=== PATIENT | female | born 1960 | race Caucasian/White ===

== ENCOUNTER → 2017-02-23 | Outpatient (CLI) | payer OTHER ==
[~2017-02-23] MED LIST: ALLEGRA ALLERG180 MG PO; ALLEGRA180 MG PO; AMARYL4 MG PO; AMITRIPTYLINE H25 M2 PO; ANTIPYRINE; ASPIRIN EC81 M1 PO; AUGMENTIN 875875 M1 PO; BACLOFEN 10MG T10 M1 PO; BACLOFEN20 MG PO; BACTROBAN22 GM TP; BENTYL 20 MG TA20 M1 PO; BENZOCAINE; BETAMETHASONE D50 G3 TP; C-1000 WITH R1000 MG PO; CLOBETASOL EMOL15 GM TP; COLACE100 MG PO; DOK100 MG PO; DYAZIDE 37.5-21 EACH PO; EFFEXOR XR75 MG PO; ELMIRON 100 MG100 M1 PO; ELMIRON PO; ESTROVEN 155 M155 MG PO; FIRST-BXN MOUT237 ML SW&SWALLOW; FLONASE 0.05%50 MCG NASAL; FOLIC ACID1 MG PO; FUROSEMIDE 40 M40 M1 PO; GABAPENTIN100 MG PO; HYDROCODON-ACE1 EAC2 PO; HYDROCODONE-APA1 TA1 PO; K-DUR 20 MEQ T20 MEQ PO; LAMISIL250 MG PO; LIDODERM 5%1 PATCH TRANSDERM; LIPITOR10 MG PO; LISINOPRIL10 MG PO; METAXALONE800 MG PO; METFORMIN HCL500 MG PO; METHOTREXATE 22.5 MG PO; METOCLOPRAMIDE10 MG PO; MOBIC15 MG PO; MUCINEX600 MG PO; MULTIGEN PO; MULTIVITAMINS PO; NASAL SPRAY30 ML; NEXIUM40 MG PO; NICOTINE TRANSD14 M1 TOP; NITROFURANTOIN100 MG PO; NYSTATIN 1100000 U/M SW&SWALLOW; ONGLYZA5 MG PO; OXYCODONE HCL 55 MG PO; PERCOCET 10-321 EACH PO; PERCOCET 7.5-31 EACH PO; PREDNISOLONE 5 M5 M1; PRELIEF65 MG PO; PROAIR HFA8.5 GM INH; SKELAXIN 800 M800 M1 PO; SPIRIVA INH; SYMBICORT160 MCG/4. INH; VESICARE10 M1 PO; VIBRAMYCIN 100100 MG PO; VITAMIN D 5050000 I1 PO; VITAMIN E400 UNIT PO; VITAMINC500 PO; XANAX 0.5 MG0.5 M1 PO; XOPENEX1.25 MG/3 INH; ZITHROMAX PO; ZOVIRAX400 MG PO
== END ==
LOC: CAT 09:40
DX: R91.1 Solitary pulmonary nodule (principal)

== ENCOUNTER → 2017-03-19 | Outpatient (CLI) | payer OTHER ==
[~2017-03-19] VITALS: Ht 167.6 cm; Wt 108.9 kg
[~2017-03-19] MED LIST changes: +ALDACTONE25 MG PO; +BACTROBAN CREAM30 G1 TOP; +BREO ELLIPTA 11 EACH IH; +BUTALB-APAP-CA1 EACH PO; +CARAFATE 1 GM TA1 G1 PO; +DALIRESP500 MCG PO; +DENAVIR1.5 GM TP; +DIFLUCAN150 M1 PO; +HYDROCORTISONE30 G9 RECTAL; +IMDUR 30 MG TAB30 M1 PO; +IRON325 PO; +LEVALBUTER1.25 MG/0. INH; +LEVEMIR SUBQ; +LEVOTHYROXINE0.05 MG PO; +NORCO 10-325 T1 EACH PO; +PREDNISONE 20 M20 MG PO; +PROCTOZONE-HC30 GM RC; +TEMOVATE30 GM TP; +TOPROL XL25 MG PO; +TRIAMTERENE-HC1 EAC2 PO; +VENTOLIN HFA 1818 GM INH; +VIACTIV SOFT C1 EACH PO; +XALATAN2.5 ML OPHTHALMIC; +[UNRECOGNIZED DRUG - OTHER] PO
--- NOTE | ~2017-03-19 | CATHLAB ---
[facility] [place] [address] INVASIVE PROCEDURE REPORT Name: JOHN JON Room #: REG [facility] [id number] Admission: 03/19/17 Attend Phys: Krish Solitario MD Discharge: Date of : 64 Date of Service: 03/19/17 0943 Report #: [id number] THIS REPORT FOR: //name// CC: Krish Manning DATE OF SERVICE: 03/19/2017 CARDIAC CATHETERIZATION REPORT INDICATION: Angina, abnormal nuclear stress test. Full risks, benefits and alternatives of cardiac catheterization were explained to the patient. All questions were answered. Informed consent was obtained. A Barbeau test was performed on the left radial artery. The left wrist area was prepped and draped in a sterile manner. Lidocaine was given subcutaneously. A 5-Wolof sheath was inserted into the left radial artery via modified Seldinger technique. Nitroglycerin and verapamil were injected through the sheath. 5000 units of heparin was introduced through a peripheral IV line. CORONARY ANATOMY: The left main artery is a large-caliber vessel, with no flow-limiting lesions. The LAD has mild disease in the mid segment, less than 20%. There are 2 small diagonal arteries. The second diagonal artery has moderate disease proximally, 50%. The left circumflex artery gives off one moderate-sized obtuse marginal artery. There is a gfyxckxu-mo-itssfq stenosis in the proximal segment of the obtuse marginal artery, 50% to 70%, recommend medical therapy. The RCA has anterior takeoff. There is mild diffuse disease in the mid segment of the RCA, 20% to 30%. The RPL branch has a long extension out into the inferolateral wall. There is a long yofkhpgi-pj-nnpmay stenosis within the proximal/mid segment of the RPL branch, 60% to 70%. Recommend medical therapy. A left ventriculogram was performed revealing a hyperdynamic LV systolic function, EF of at least 65%. The LVEDP is approximately 37 mmHg. There is no gradient across the outflow tract. IMPRESSION: 1. Patent epicardial vessels with mild disease. 2. Moderate lesions in small branch vessels including the second diagonal artery. [facility] [address] [place] [address] INVASIVE PROCEDURE REPORT Name: JOHN JON Room #: REG [facility]#: [id number] Admission: 03/19/17 Attend Phys: Krish Solitario MD Discharge: Date of : 64 Date of Service: 03/19/17 0943 Report #: [id number] 3. Zrmrikmq-yo-zsctmp stenosis in the obtuse marginal artery. 4. A long, severe disease in a right posterolateral branch, recommend medical therapy. 5. Hyperdynamic left ventricular systolic function. <ELECTRONICALLY SIGNED> By: Krish Solitario MD 03/20/17 0758 0943 1135 MD jer Dye
--- NOTE | ~2017-03-19 | EKG ---
[place] [address] [facility] [place] [address] ELECTROCARDIOGRAM REPORT Name: JOHN JON [facility] #: [facility] [id number] Admission: 03/19/17 Attend Phys: Krish Solitario MD Discharge: Date of : 64 Report #: [id number] THIS REPORT FOR: //name// [facility] Test Date: 2017-03-19 Test Time: 07:06:27 Pat Name: JOHN JON Department: Room: Gender: F Legislators: Tico SILVA : 1960 Requested By: Krish Solitario Order Number: [id number] MD: Anthony Groves Measurements Intervals [place] Rate: 85 P: 52 VA: 177 QRS: 36 QRSD: 77 T: 61 QT: 392 QTc: 467 Interpretive Statements Sinus rhythm Consider left atrial enlargement Borderline T wave abnormalities Compared to ECG 03/16/2014 07:06:07 No significant changes Electronically Signed On 03-19-2017 8:36:43 CDT by Anthony Groves [email or web address] <ELECTRONICALLY SIGNED> By: Anthony Groves MD, [facility] 03/19/17 0836 0706 5 Anthony Groves MD, FACC /EPI
[2017-03-19 07:09] VITALS: BP 183/91
[2017-03-19 07:23] LABS: HEMATOCRIT 38.9 % (37.0-47.0); HEMOGLOBIN 13.3 gm/dL (12.0-15.0); MCHC 34.3 g/dL (28.0-37.0); MCV 105.2 fL (80.0-100.0); RBC 3.7 mil/uL (4.20-5.00); RDW 14.9 % (10.5-14.5); WBC 9.8 thou/uL (4.0-11.0)
[2017-03-19 07:31] LABS: ANION GAP 5 mmol/L (7-16); BUN 9 mg/dL (7-18); CHLORIDE 105 mmol/L (98-107); CO2 29 mmol/L (21-32); CREATININE 0.6 mg/dL (0.6-1.0); GLUCOSE 146 mg/dL (74-106); POTASSIUM 3.7 mmol/L (3.5-5.1); SODIUM 139 mmol/L (136-145)
[2017-03-19 07:37] LABS: CHOLESTEROL 176 mg/dL (<200); HDL CHOLESTEROL 31 mg/dL (>40); LDL CHOLESTEROL 120 mg/dL (<100); TC:HDL 5.7 Ratio (Not establshd); TRIGLYCERIDE 125 mg/dL (<150); VLDL 25 mg/dL (<40)
== END ==
LOC: CATH 06:29
PROVIDERS: Internal Medicine Cardiovascular Disease
DX: I25.119 Atherosclerotic heart disease of native coronary artery with unspecified angina pectoris (principal); D86.89 Sarcoidosis of other sites; R56.9 Unspecified convulsions; K21.9 Gastro-esophageal reflux disease without esophagitis; K58.9 Irritable bowel syndrome, unspecified; M19.90 Unspecified osteoarthritis, unspecified site; Z90.49 Acquired absence of other specified parts of digestive tract; Z90.710 Acquired absence of both cervix and uterus; J45.909 Unspecified asthma, uncomplicated; J43.9 Emphysema, unspecified; E11.9 Type 2 diabetes mellitus without complications; E78.00 Pure hypercholesterolemia, unspecified; E66.9 Obesity, unspecified; N30.10 Interstitial cystitis (chronic) without hematuria; D64.9 Anemia, unspecified; M79.7 Fibromyalgia; I42.9 Cardiomyopathy, unspecified; Z82.49 Family history of ischemic heart disease and other diseases of the circulatory system; G45.9 Transient cerebral ischemic attack, unspecified; I10 Essential (primary) hypertension; F17.210 Nicotine dependence, cigarettes, uncomplicated

== ENCOUNTER 2017-06-01 06:35 | Observation (INO) | payer OTHER ==
[~2017-06-01] VITALS: Ht 167.6 cm; Wt 105.7 kg
--- NOTE | ~2017-06-01 | EKG ---
[address] [address] ELECTROCARDIOGRAM REPORT Name: JOHN JON Room #: 210-P [facility].#: [id number] Admission: 06/01/17 Attend Phys: Krish Solitario MD Discharge: Date of : 64 Report #: [id number] THIS REPORT FOR: //name// [facility] Test Date: 2017-06-01 Test Time: 10:48:35 Pat Name: JOHN JON Department: Room: 210 Gender: F Freelance Court Reporter: FREDY SILVA : 1960 Requested By: Krish Solitario Order Number: [id number] MD: Lucho Hansen Measurements Intervals [place] Rate: 78 P: 62 DC: 198 QRS: 52 QRSD: 87 T: 74 QT: 417 QTc: 476 Interpretive Statements Sinus rhythm Compared to ECG 03/19/2017 07:06:27 T-wave abnormality no longer present Electronically Signed On 06-01-2017 16:49:57 CDT by Lucho Hansen [email or web address] <ELECTRONICALLY SIGNED> By: Lucho Hansen MD 06/01/17 1649 1048 Lucho Hansen MD /EMMETT
--- NOTE | ~2017-06-01 | CATHLAB ---
[facility] [address] [address] INVASIVE PROCEDURE REPORT Name: JOHN JON Room #: 210-P [facility] [place] ..#: [id number] Admission: 06/01/17 Attend Phys: Krish Solitario MD Discharge: Date of : 64 Date of Service: 06/01/17 1407 Report #: [id number] THIS REPORT FOR: //name// APPROVED REPORT Patient Details Patient Status: Out-Patient Room #: The patient is a 57 year-old female Event Personnel Krish Solitario Block Hand, Mary Fitzpatrick, Blaze Galvan RN, Maico Hughes El-Ghussein, Yasmeen RN roller checker Performed Art Access - R femoral artery* Coronary Angiography Only 0499043 CORANG MIRI Place w/wo Plasty Single OM 291204 MIRI Place w/wo Plasty Addl BR CRISTIANO C9601 DESADDL Hemostasis with Manual pressure 81293 Initial Mod Sed Same Phys/QHP Gr5y 041368 31304 Mod Sed Same Phys/QHP Ea 405904 Indication Dyspnea, Unstable angina Risk Factors Obesity, Peripheral Vascular Disease, Chronic Lung DiseaseHypercholesterolemia, Hypertension, Tobacco History () Procedure Narrative The right femoral was infiltrated with 1% Lidocaine subcutaneous anesthesia. A PINNACLE 6FR Sheath #[id number] sheath was inserted into the RFA^. Coronary angiography was performed using coronary diagnostic catheters. The right coronary system was accessed and visualized with a VISTA 6FR JR 4 #[id number] catheter. The left coronary system was accessed and visualized with a VISTA 6FR JL4 #[id number] catheter. The patient tolerated the procedure well and there were no complications associated with the procedure. There was no hematoma. The patient had a recent cardiac catheterization revealing a 70% stenosis in the proximal segment of the first obtuse marginal artery and a long 80% stenosis in the proximal and mid segment of a right posterior lateral branch. The initial recommendation was medical therapy including beta hira, aspirin, statin therapy, long-acting nitrates and Ranexa therapy. On follow-up, she continued to have exertional angina with mild levels of physical activity. She now [address] [address] INVASIVE PROCEDURE REPORT Name: JOHN JON Room #: 210-P [facility]#: [id number] Admission: 06/01/17 Attend Phys: Krish Solitario MD Discharge: Date of : 64 Date of Service: 06/01/17 1407 Report #: [id number] presents for elective staged angioplasty involving the above lesions. Intraoperative Conscious Sedation Sedation start time: 08:13 Case end Time: 09:15 Fentanyl 50 mcg Versed 1 mg Fluoro Time: 19.32 minutes Dose: DAP 07910.50 cGycm2 2572 mGy Contrast Type and Amount: Omnipaque 300 ml Hemodynamics The aortic pressure is 146/71 mmHg with a mean of 100 mmHg. PCI Technique Lesion Anticoagulation was achieved with Angiomax. Percutaneous coronary intervention was performed on the first obtuse marginal branch segment. A VISTA 6FR JL4 #[id number] Guide Catheter was used to engage the LCA ostium. A Luge Wire .014 x 182CM #[id number] Interventional Guidewire was used to cross the lesion. BALLOON DILATION A Balloon catheter TREK RX 2.0 X 12 #[id number] was inserted and inflated up to 10.00atm for 18seconds. Additional Inflation: 10.00atm for 18seconds. STENT DEPLOYMENT A drug-eluting stent RESOLUTE RX 2.5 X 22 #[id number] was inserted and inflated up to 9.00atm for 22seconds. POST STENT DEPLOYMENT BALLOON DILATION A Balloon catheter Euphora NC RX 2.5 x 15 #[id number] was inserted and inflated up to 16.00atm for 21seconds. Additional Inflation: 18.00atm for 13seconds. Additional Inflation: 18.00atm for 17seconds. COMMENTS Successful insertion of a drug-eluting stent into the proximal segment of the first obtuse marginal artery. PCI Technique Lesion 2 Percutaneous Coronary Intervention was performed on the first right posterior lateral segment. A VISTA 6FR JR 4 #[id number] Guide Catheter was used to engage the RCA ostium. A Luge Wire .014 x 182CM #[id number] Interventional Guidewire was used to cross the lesion. [facility] [address] [place] [address] INVASIVE PROCEDURE REPORT Name: JOHN JON Room #: 210-P [facility] M.R.#: [id number] Admission: 06/01/17 Attend Phys: Krish Solitario MD Discharge: Date of : 64 Date of Service: 06/01/17 1407 Report #: [id number] Balloon Dilation A Balloon catheter MINI TREK RX 2.0 X 20 #[id number] was inserted and inflated up to 8.00atm for 17seconds. Additional Inflation: 8.00atm for 18seconds. Stent Deployment A drug-eluting stent RESOLUTE RX 2.25 X 22 #[id number] was inserted and inflated up to 10.00atm for 17seconds. Post Stent Deployment Balloon Dilation A Balloon catheter Euphora NC RX 2.5 x 20 #[id number] was inserted and inflated up to 18.00atm for 27seconds. Additional Inflation: 18.00atm for 13seconds. Additional Inflation: 18.00atm for 13seconds. Comments Successful insertion of 2 overlapping drug-eluting stents into the proximal and mid segments of the right posterior lateral branch 1. STENT DEPLOYMENT A drug-eluting stent RESOLUTE RX 2.25 X 18 #[id number] was inserted and inflated up to 12.00atm for 16seconds. Conclusion 1. Successful insertion of drug-eluting stents to the first OM and first RPL arteries. 2. Recommend dual antiplatelet therapy. 3. Recommend aggressive medical therapy, including cessation of tobacco use. Recommendations Smoking Cessation Aggressive Medical Therapy <ELECTRONICALLY SIGNED> By: Krsih Solitario MD 06/01/17 1407 06 Krish Solitario MD /INF
--- NOTE | ~2017-06-01 | EKG ---
[address] [place] [address] ELECTROCARDIOGRAM REPORT Name: JOHN JON Room #: 210-P [facility]..#: [id number] Admission: 06/01/17 Attend Phys: Krish Solitario MD Discharge: Date of : 64 Report #: [id number] THIS REPORT FOR: //name// [facility] Test Date: 2017-06-01 Test Time: 07:01:54 Pat Name: JOHN JON Department: Room: 210 Gender: F Quality Control Chemist: DORA : 1960 Requested By: Krish Solitario Order Number: [id number] MD: Lucho Hansen Measurements Intervals [place] Rate: 89 P: 49 NH: 173 QRS: 24 QRSD: 85 T: 63 QT: 381 QTc: 464 Interpretive Statements Sinus rhythm Ventricular premature complex Low voltage, precordial leads Compared to ECG 03/19/2017 07:06:27 Ventricular premature complex(es) now present Low QRS voltage now present T-wave abnormality no longer present Electronically Signed On 06-01-2017 16:47:40 CDT by Lcuho Hansen [email or web address] <ELECTRONICALLY SIGNED> By: Lucho Hansen MD 06/01/17 1647 0 0 Lucho Hansen MD /EPI
--- NOTE | ~2017-06-01 | EKG ---
[address] [address] ELECTROCARDIOGRAM REPORT Name: JOHN JON Room #: 210-[facility].#: [id number] Admission: 06/01/17 Attend Phys: Krish Solitario MD Discharge: Date of : 64 Report #: [id number] THIS REPORT FOR: //name// [facility] Test Date: 2017-06-02 Test Time: 06:08:20 Pat Name: JOHN JON Department: Room: 210 Gender: F Bellmaker: DORA : 1960 Requested By: Krish Solitario Order Number: [id number] MD: Anthony Groves Measurements Intervals [place] Rate: 68 P: 2 TN: 165 QRS: 35 QRSD: 94 T: 57 QT: 448 QTc: 477 Interpretive Statements Sinus rhythm No significant abnormality Compared to ECG 06/01/2017 10:48:35 No significant changes Electronically Signed On 06-02-2017 8:34:47 CDT by Anthony Groves [email or web address] <ELECTRONICALLY SIGNED> By: Anthony Groves MD, [facility] 06/02/17 0834 0608 7 Anthony Groves MD, FACC /EPI
--- NOTE | ~2017-06-01 | D ---
[facility] [place] [address] DISCHARGE SUMMARY Name: JOHN JON Room #: 210-P [facility] Chata Botello#: [id number] Admission: 06/01/17 Attend Phys: Krish Solitario MD Discharge: 06/02/17 Date of : 64 Report #: [id number] THIS REPORT FOR: //name// CC: Pablito Manning DATE OF SERVICE: 06/02/2017 FINAL DIAGNOSES: 1. Coronary artery disease, status post percutaneous coronary intervention. 2. Unstable angina. 3. Chronic obstructive pulmonary disease, on chronic oxygen therapy. 4. Tobacco use. 5. Hypertension. 6. Diabetes mellitus. 7. Hypercholesterolemia. 8. Chronic pain syndrome. 9. Gastroesophageal reflux disease. 10. History of urinary tract infection. HOSPITAL COURSE: Please see the original H and P for full details. The patient had a recent cardiac catheterization revealing severe disease and branch vessels, including the first obtuse marginal artery and right posterolateral branch. The initial recommendation was medical therapy including aspirin, statin, beta hira, long-acting nitrates and Ranexa therapy. The patient continued to have symptoms with mild levels of physical exertion. She presents for elective staged angioplasty. Please see the cardiac catheterization report for full details. She underwent placement of drug-eluting stents into the first obtuse marginal artery and right posterolateral branch. She has remained hemodynamically stable overnight. I had a long discussion with her regarding the importance of compliance with dual antiplatelet therapy. FINAL DISPOSITION: Please see the MAR for full details of her medications. This includes aspirin 81 mg daily and Brilinta 90 mg twice a day. She is given a followup appointment in the office in several weeks' time. <ELECTRONICALLY SIGNED> By: Krish Solitario MD 06/03/17 0807 0856 0958 Krish Solitario MD /nt
[2017-06-01] MEDS ORDERED: RANEXA500 MG PO (06:54)
[2017-06-01] MEDS ORDERED: FERRO-SEQUELS1 EACH PO (07:04)
[2017-06-01] MEDS ORDERED: COZAAR 50 MG TA50 M2 PO (07:06)
[2017-06-01] MEDS ORDERED: MUCINEX DM ER1 EAC1 PO (07:12)
[2017-06-01 07:17] LABS: HEMATOCRIT 39.5 % (37.0-47.0); HEMOGLOBIN 13.1 gm/dL (12.0-15.0); MCH 35.4 pg (26.0-34.0); MCHC 33.2 g/dL (28.0-37.0); MCV 106.6 fL (80.0-100.0); RBC 3.71 mil/uL (4.20-5.00); RDW 14.6 % (10.5-14.5)
[2017-06-01] MEDS ORDERED: VITAMIN D 5050000 I1 PO (07:20)
[2017-06-01] MEDS ORDERED: LEVSIN0.125 MG PO (07:25)
[2017-06-01] MEDS ORDERED: ESTROVEN ENERG1 EACH PO (07:26)
[2017-06-01 07:27] LABS: CREATININE 0.8 mg/dL (0.6-1.0)
[2017-06-01] MEDS ORDERED: [UNRECOGNIZED DRUG - OTHER] PO (07:27)
[2017-06-01] MEDS ORDERED: PRELIEF (07:32)
[2017-06-01] MEDS ORDERED: GAS RELIEF80 MG PO (07:33)
[2017-06-01 07:38] VITALS: BP 139/82
[2017-06-01 13:01] LABS: URINE BILIRUBIN NEGATIVE (Negative); URINE BLOOD NEGATIVE (Negative); URINE COLOR YELLOW; URINE GLUCOSE-RANDOM* NEGATIVE (Negative); URINE KETONES NEGATIVE (Negative); URINE LEUKOCYTES-REFLEX NEGATIVE (Negative); URINE PROTEIN (DIPSTICK) NEGATIVE (Negative); URINE SPECIFIC GRAVITY <= 1.005 (1.003-1.035); URINE UROBILINOGEN 0.2 E.U./dl (0.2-1.0)
[2017-06-01] MEDS ORDERED: BREO ELLIPTA 21 EACH IH (14:09)
[2017-06-01] MEDS ORDERED: BUTALB-ACETAMI1 EAC2 PO (14:14)
[2017-06-01 20:10] VITALS: BP 168/96
[2017-06-01 21:45] VITALS: BP 168/96
[2017-06-01 23:00] VITALS: BP 156/72
[2017-06-02 00:10] VITALS: BP 156/72
[2017-06-02 03:20] VITALS: BP 160/80
[2017-06-02 03:30] VITALS: BP 160/80
[2017-06-02 04:07] LABS: CREATININE 0.6 mg/dL (0.6-1.0); POTASSIUM 3.9 mmol/L (3.5-5.1)
[2017-06-02 04:11] LABS: TROPONIN-I 0.85 ng/mL (<0.04-0.07)
[2017-06-02 04:20] LABS: HEMATOCRIT 39.8 % (37.0-47.0); HEMOGLOBIN 13.1 gm/dL (12.0-15.0); MCH 35.2 pg (26.0-34.0); MCHC 32.8 g/dL (28.0-37.0); MCV 107.2 fL (80.0-100.0); RBC 3.72 mil/uL (4.20-5.00); RDW 14.7 % (10.5-14.5); WBC 11.3 thou/uL (4.0-11.0)
[2017-06-02 07:35] VITALS: BP 153/60
[2017-06-02] MEDS ORDERED: BRILINTA90 MG PO (08:49)
[2017-06-02 09:14] VITALS: BP 153/60
[2017-06-02 13:11] VITALS: BP 153/60
== END 2017-06-02 12:05 | disposition home or self-care (01) ==
LOC: CATH 06:35 → 2N 13:21
PROVIDERS: Internal Medicine Cardiovascular Disease; Nurse Practitioner
DX: R07.9 Chest pain, unspecified (principal); I25.110 Atherosclerotic heart disease of native coronary artery with unstable angina pectoris; I10 Essential (primary) hypertension; J44.9 Chronic obstructive pulmonary disease, unspecified; E11.9 Type 2 diabetes mellitus without complications; E78.00 Pure hypercholesterolemia, unspecified; G89.4 Chronic pain syndrome; K21.9 Gastro-esophageal reflux disease without esophagitis; E78.5 Hyperlipidemia, unspecified; G47.33 Obstructive sleep apnea (adult) (pediatric); Z87.440 Personal history of urinary (tract) infections; Z72.0 Tobacco use; Z95.5 Presence of coronary angioplasty implant and graft

== ENCOUNTER → 2017-10-09 | Outpatient (CLI) | payer OTHER ==
[~2017-10-09] MED LIST changes: +AMLODIPINE BESY10 MG PO; +AUGMENTIN XR 11 EACH PO; +BREO ELLIPTA 11 EACH INH; +BREO ELLIPTA 21 EACH IH; +BRILINTA90 MG PO; +BUTALB-ACETAMI1 EAC2 PO; +COREG6.25 MG PO; +COZAAR 50 MG TA50 M2 PO; +DOXYCYCLINE 10100 MG PO; +EPIPEN0.3 MG/0.1 INJECTION; +ESTROVEN ENERG1 EACH PO; +FERRO-SEQUELS1 EACH PO; -GABAPENTIN100 MG PO; +GAS RELIEF80 MG PO; +LEVSIN0.125 MG PO; +LISINOPRIL20 MG PO; +MUCINEX DM ER1 EAC1 PO; +NEURONTIN 300300 M1 PO; +PLAVIX 75 MG TA75 M1 PO; +PREDNISONE 10 M10 MG PO; +PRELIEF; +PROMETHAZINE-C473 ML PO; +RANEXA500 MG PO
== END ==
LOC: CAT 12:51
DX: J92.9 Pleural plaque without asbestos (principal); R91.8 Other nonspecific abnormal finding of lung field; R59.0 Localized enlarged lymph nodes; J44.9 Chronic obstructive pulmonary disease, unspecified; K21.9 Gastro-esophageal reflux disease without esophagitis; G47.33 Obstructive sleep apnea (adult) (pediatric); I10 Essential (primary) hypertension; E04.9 Nontoxic goiter, unspecified; Z98.890 Other specified postprocedural states; Z90.710 Acquired absence of both cervix and uterus; Z87.891 Personal history of nicotine dependence

== ENCOUNTER 2018-04-06 20:33 | Emergency (ER) | payer OTHER ==
[~2018-04-06] VITALS: Ht 167.6 cm; Wt 102.6 kg
[~2018-04-06 20:33] MED LIST changes: -AMLODIPINE BESY10 MG PO; -AUGMENTIN XR 11 EACH PO; -BREO ELLIPTA 11 EACH INH; -COREG6.25 MG PO; -DOXYCYCLINE 10100 MG PO; -EPIPEN0.3 MG/0.1 INJECTION; +GABAPENTIN100 MG PO; -LISINOPRIL20 MG PO; -NEURONTIN 300300 M1 PO; -PLAVIX 75 MG TA75 M1 PO; -PREDNISONE 10 M10 MG PO; -PROMETHAZINE-C473 ML PO
[2018-04-06] MEDS ORDERED: PREDNISONE 20 M20 MG PO (23:58)
[2018-04-06] MEDS ORDERED: EPIPEN0.3 MG/0.1 INJECTION (23:58)
== END 2018-04-07 00:20 | disposition home or self-care (01) ==
LOC: ER 20:33
DX: T88.6XXA Anaphylactic reaction due to adverse effect of correct drug or medicament properly administered, initial encounter (principal); T36.8X5A Adverse effect of other systemic antibiotics, initial encounter; Y92.89 Other specified places as the place of occurrence of the external cause; R06.00 Dyspnea, unspecified; R06.02 Shortness of breath; K21.9 Gastro-esophageal reflux disease without esophagitis; M19.90 Unspecified osteoarthritis, unspecified site; J45.909 Unspecified asthma, uncomplicated; E11.9 Type 2 diabetes mellitus without complications; E78.00 Pure hypercholesterolemia, unspecified; I25.10 Atherosclerotic heart disease of native coronary artery without angina pectoris; I10 Essential (primary) hypertension; G47.30 Sleep apnea, unspecified; Z90.49 Acquired absence of other specified parts of digestive tract

== ENCOUNTER 2018-11-11 12:28 | Emergency (ER) | payer OTHER ==
[~2018-11-11] VITALS: Ht 167.6 cm; Wt 99.8 kg
[~2018-11-11 12:28] MED LIST changes: +AMLODIPINE BESY10 MG PO; +AUGMENTIN XR 11 EACH PO; +BREO ELLIPTA 11 EACH INH; -BREO ELLIPTA 21 EACH IH; +BREO ELLIPTA 21 EACH INH; +COREG6.25 MG PO; +DOXYCYCLINE 10100 MG PO; +EPIPEN0.3 MG/0.1 INJECTION; +ERGOCALCIF50000 UNIT PO; +GABAPENTIN 100100 MG PO; -GABAPENTIN100 MG PO; +LIPITOR 20 MG T20 M1 PO; +LISINOPRIL20 MG PO; +PLAVIX 75 MG TA75 M1 PO; +PREDNISONE 10 M10 MG PO; +PROMETHAZINE-C473 ML PO; +VITAMIN E1000 UNI2 PO; -VITAMIN E400 UNIT PO
[2018-11-11 13:02] LABS: ABSOLUTE NEUTROPHILS 5.1 thou/uL (1.4-8.2); BASOPHILS 0.6 % (0.0-2.0); EOSINOPHILS 1.5 % (0.0-3.0); HEMATOCRIT 39.9 % (37.0-47.0); HEMOGLOBIN 13.9 gm/dL (12.0-15.0); LYMPHOCYTES 22.6 % (24.0-44.0); MCH 37.3 pg (26.0-34.0); MCHC 34.9 g/dL (28.0-37.0); MCV 106.8 fL (80.0-100.0); MONOCYTES 10.7 % (1.0-8.0); PLATELET COUNT 223 thou/uL (150-400); POLYS 64.6 % (36.0-66.0); RBC 3.73 mil/uL (4.20-5.00); RDW 14.3 % (10.5-14.5); WBC 7.9 thou/uL (4.0-11.0)
[2018-11-11 13:16] LABS: ANION GAP 10 mmol/L (7-16); BUN 9 mg/dL (7-18); CALCIUM 8.8 mg/dL (8.5-10.1); CHLORIDE 101 mmol/L (98-107); CO2 26 mmol/L (21-32); CREATININE 0.7 mg/dL (0.6-1.0); GLUCOSE 294 mg/dL (74-106); POTASSIUM 3.8 mmol/L (3.5-5.1); SODIUM 137 mmol/L (136-145)
[2018-11-11 13:20] LABS: ALBUMIN 3.4 g/dL (3.4-5.0); SGOT 21 U/L (15-37); SGPT 33 U/L (30-65); TOTAL BILIRUBIN 0.2 mg/dL (<0.1-1.0); TROPONIN-I <0.06 ng/mL (<0.06)
[2018-11-11 13:40] LABS: ANISOCYTOSIS 1+; MACROCYTES 2+; PLATELET ESTIMATE NORMAL
[2018-11-11] MEDS ORDERED: MOBIC15 MG PO (14:58)
[2018-11-11] MEDS ORDERED: LISINOPRIL20 MG PO (14:58)
[2018-11-11] MEDS ORDERED: IRON325 PO (14:59)
[2018-11-11] MEDS ORDERED: LEVALBUTER1.25 MG/0. PO (14:59)
[2018-11-11] MEDS ORDERED: LEVSIN0.125 MG SUBLING (14:59)
[2018-11-11] MEDS ORDERED: NOVOLOG100 UNIT/1 SUBQ ×2 (15:00)
[2018-11-11] MEDS ORDERED: PROCTOZONE-HC30 GM TOP (15:01)
[2018-11-11] MEDS ORDERED: DEXILANT60 MG PO (15:02)
[2018-11-11] MEDS ORDERED: GABAPENTIN 100100 MG PO (15:02)
[2018-11-11] MEDS ORDERED: ELMIRON 100 MG100 M1 PO (15:02)
--- NOTE | 2018-11-11 15:27 | EKG ---
[place] [address] [address] [place] [address] ELECTROCARDIOGRAM REPORT Name: JOHN JON [facility] [id number] Admission: 11/11/18 Attend Phys: Discharge: Date of : 64 Report #: [id number] THIS REPORT FOR: //name// [facility] ED Test Date: 2018-11-11 Test Time: 12:39:38 Pat Name: JOHN JON Department: Room: Gender: F Human Resource Adviser: WG : 1960 Requested By: Flo Gotti Order Number: [id number] MD: Lucho Hansen Measurements Intervals [place] Rate: 82 P: 57 AR: 178 QRS: 36 QRSD: 87 T: 69 QT: 383 QTc: 448 Interpretive Statements Sinus rhythm Ventricular premature complex Consider left atrial enlargement Borderline T wave abnormalities Compared to ECG 06/02/2018 10:34:14 T-wave abnormality now present ST (T wave) deviation no longer present Electronically Signed On 11-11-2018 15:27:38 TREE LOADER MEAT by Lucho Hansen [email or web address] <ELECTRONICALLY SIGNED> By: Lucho Hansen MD 11/11/18 1527 1239 1239 Lucho Hansen MD /EMMETT
[2018-11-11] MEDS ORDERED: MEDROLDOSEPACK PO (16:25)
[2018-11-11] MEDS ORDERED: LEVALBUTER1.25 MG/0. INH (16:40)
[2018-11-11 17:02] VITALS: BP 139/59
== END 2018-11-11 17:03 | disposition home or self-care (01) ==
LOC: ER 12:28
PROVIDERS: Emergency Medicine
DX: J44.1 Chronic obstructive pulmonary disease with (acute) exacerbation (principal); F17.210 Nicotine dependence, cigarettes, uncomplicated; D86.9 Sarcoidosis, unspecified; K21.9 Gastro-esophageal reflux disease without esophagitis; K58.9 Irritable bowel syndrome, unspecified; G47.33 Obstructive sleep apnea (adult) (pediatric); J45.909 Unspecified asthma, uncomplicated; E11.9 Type 2 diabetes mellitus without complications; E78.00 Pure hypercholesterolemia, unspecified; I95.1 Orthostatic hypotension; M79.7 Fibromyalgia; I25.10 Atherosclerotic heart disease of native coronary artery without angina pectoris; I10 Essential (primary) hypertension; Z88.8 Allergy status to other drugs, medicaments and biological substances; Z90.49 Acquired absence of other specified parts of digestive tract; Z90.710 Acquired absence of both cervix and uterus; Z86.2 Personal history of diseases of the blood and blood-forming organs and certain disorders involving the immune mechanism; Z91.048 Other nonmedicinal substance allergy status; Z88.1 Allergy status to other antibiotic agents; Z91.040 Latex allergy status; Z88.2 Allergy status to sulfonamides; Z79.4 Long term (current) use of insulin

== ENCOUNTER 2019-01-24 06:46 | Outpatient (CLI) | payer OTHER ==
[~2019-01-24] VITALS: Ht 167.6 cm; Wt 103.0 kg
--- NOTE | ~2019-01-24 | D ---
[facility] [place] [address] DISCHARGE SUMMARY Name: JOHN JON Room #: DEP MIKI Botello#: [id number] Admission: 01/24/19 ������������������ Attend Phys: Krish Solitario MD Discharge: 01/25/19 ������������������ Date of : 64 Report #: [id number] THIS REPORT FOR: //name// CC: Bessy Dill DATE OF SERVICE: 01/25/2019 FINAL DIAGNOSES: 1. Unstable angina status post coronary intervention. 2. Prior history of coronary artery disease. 3. Chronic obstructive pulmonary disease, on oxygen. 4. Sarcoidosis. 5. Hypercholesterolemia. 6. Diabetes mellitus. 7. Chronic tobacco use. 8. Hypertension. 9. Gastroesophageal reflux disease. 10. Edema. HOSPITAL COURSE: Please see the original H and P for full details. The patient presented with chest pains and dyspnea. She was found to have an abnormal nuclear stress test with evidence for ischemia in the inferolateral distribution. Please see the cardiac catheterization report for full details. The stent in the first obtuse marginal artery was patent. The LAD had mild disease. The stent in the right posterolateral branch was patent. After the stent, the RPL branch tapers down to a small caliber vessel with severe stenosis at the distal segment and medical therapy is recommended. In the mid/distal RCA, there was a severe occlusion, 80%. Angioplasty was performed with placement of a drug-eluting stent at this location. She remained stable overnight. She will continue with the medications. Please see the MAR for full listing. From a cardiac standpoint, she will continue with aspirin 81 mg daily, Lipitor 20 mg daily, Coreg 12.5 mg b.i.d., lisinopril as directed, Ranexa 1000 mg b.i.d. and new medication, Plavix 75 mg daily. She will be scheduled for followup in a few weeks. ��������������������������������������������� ���������������������������������������� By: ��������������������������������������������� 0942 1220 Krish Solitario MD /nt
[~2019-01-24 06:46] MED LIST changes: +DEXILANT60 MG PO; +LEVALBUTER1.25 MG/0. PO; +LEVSIN0.125 MG SUBLING; +MEDROLDOSEPACK PO; +NOVOLOG100 UNIT/1 SUBQ; +PROCTOZONE-HC30 GM TOP
[2019-01-24 07:16] LABS: HEMATOCRIT 36.6 % (37.0-47.0); HEMOGLOBIN 12.3 gm/dL (12.0-15.0); MCH 36.9 pg (26.0-34.0); MCHC 33.7 g/dL (28.0-37.0); MCV 109.6 fL (80.0-100.0); RBC 3.34 mil/uL (4.20-5.00); WBC 15.5 thou/uL (4.0-11.0)
[2019-01-24] MEDS ORDERED: MAXZIDE-25 MG1 EACH PO (07:21)
[2019-01-24] MEDS ORDERED: DALIRESP500 MCG PO (07:22)
[2019-01-24] MEDS ORDERED: POTASSIUM20 PO (07:22)
[2019-01-24] MEDS ORDERED: CARVEDILOL12.5 MG PO (07:23)
[2019-01-24] MEDS ORDERED: RANEXA500 MG PO (07:24)
[2019-01-24] MEDS ORDERED: LIORESAL 10 MG10 MG PO (07:25)
[2019-01-24 07:27] LABS: CALCIUM 8.9 mg/dL (8.5-10.1); CREATININE 0.7 mg/dL (0.6-1.0)
[2019-01-24 07:28] VITALS: BP 153/62
[2019-01-24 07:32] LABS: CHOLESTEROL 174 mg/dL (<200); HDL CHOLESTEROL 44 mg/dL (>40); LDL CHOLESTEROL 106 mg/dL (<100); TRIGLYCERIDE 124 mg/dL (<150); VLDL 25 mg/dL (<40)
--- NOTE | 2019-01-24 07:32 | EKG ---
[place] [address] [facility] [place] [address] ELECTROCARDIOGRAM REPORT Name: JOHN JON [facility] [id number] ������������������ Admission: 01/24/19 ������������������ Attend Phys: Krish Solitario MD Discharge: ������������������ Date of : 64 Report #: [id number] ����������������������������������������������������������������� [id number] THIS REPORT FOR: //name// [facility] Test Date: 2019-01-24 Test Time: 07:19:01 Pat Name: JOHN JON Department: Room: Gender: F Stereo Plotter Operator: Tico WELLS : 1960 Requested By: Krish Solitario Order Number: [id number] MD: Anthony Groves Measurements Intervals [place] Rate: 75 P: 58 [place]: 183 QRS: 43 QRSD: 87 T: 52 QT: 414 QTc: 463 Interpretive Statements Sinus rhythm Nonspecific ST and T wave abnormality Compared to ECG 11/11/2018 12:39:38 Ventricular premature complex(es) no longer present Electronically Signed On 01-24-2019 7:31:56 CDT by Anthony Groves [email or web address] ��������������������������������������������� <ELECTRONICALLY SIGNED> ���������������������������������������� By: Anthony Groves MD, [facility] ��������������������������������������������� 01/24/1931 8 8 Anthony Groves MD, [facility] /EPI
[2019-01-24 10:45] VITALS: BP 146/74
--- NOTE | 2019-01-24 10:45 | NUR ---
RECEIVED FROM POLE SANDER OPERATOR SLEEPY BUT AROUSABLE, VSS NSR R GROIN CATH SITE/MYNX, NO BLEEDING HEMATOMA, NO BRUIT HEARD.INSTUCTED BR X 4 HOURS, LUNGS CLEAR O2 AT 5L O2 SAT 94%. SEE DATA FLOW SHEET FOR FREQUENT VA AND GROIN CHECKS. WILL CONTINUE TO MONITER AND CARE FOR PT PER PLNA OF CARE
[2019-01-24 11:30] VITALS: BP 112/70
--- NOTE | 2019-01-24 12:47 | CATHLAB ---
[facility] [address] [place] [address] INVASIVE PROCEDURE REPORT Name: JOHN JON Room #: 207-P [facility]#: [id number] ������������� Admission: 01/24/19 ������������� Attend Phys: Krish Solitario MD Discharge: ��� ������������� ��� Date of : 64 Date of Service: 01/24/19 1247 �� Report #: [id number] �������� ��������������������������������������������[id number] THIS REPORT FOR: //name// APPROVED REPORT Study performed: 01/24/2019 07:32:25 Patient Details Patient Status: Out-Patient Room #: The patient is a 59 year-old female Event Personnel Krish Solitario Surgical Technology Instructor, Allyson Mckeon RTR, DRONE PILOT Monitor, Reyna Munoz RN RN, Ekaterina Luis RN RN, Mary Fitzpatrick Scrviv Procedures Performed Art Access - R femoral artery* Left Heart Cath w/or w/o Coronaries [id number] [facility] MIRI Place w/wo Plasty Single RCA 391899 Indication Dyspnea, Unstable angina , Positive stress test Risk Factors Hypercholesterolemia, Coronary Artery DiseaseHypertension, Diabetes Tobacco History () Previous Procedures/Diagnoses Previous PCI Procedure Narrative The patient was brought electively to the Cardiac Catheterization Laboratory and was prepped and draped in a sterile manner. The Right Groin^ was infiltrated with 1% Lidocaine subcutaneous anesthesia. A PINNACLE 4FR Sheath #[id number] sheath was inserted into the RFA^. Coronary angiography was performed using coronary diagnostic catheters. The right coronary system was accessed and visualized with a 4FR AR MOD #[id number] catheter. The left coronary system was accessed and visualized with a JL 4 catheter. The left ventricle was accessed and visualized with a Pigtail catheter. Left ventricular/Aortic Valve gradient assessed via catheter pullback. Left ventriculogram was performed in VENEGAS projection. Pre-demployment femoral angiogram was performed . Closure device was deployed with a 6 Fr Mynx. The patient tolerated the procedure well and there were no complications [facility] [address] [place] [address] INVASIVE PROCEDURE REPORT Name: JOHN JON Room #: 207-P [facility]#: [id number] ������������� Admission: 01/24/19 ������������� Attend Phys: Krish Solitario MD Discharge: ��� ������������� ��� Date of : 64 Date of Service: 01/24/19 1247 �� Report #: [id number] �������� ��������������������������������������������[id number] associated with the procedure. There was no hematoma. Fluoro Time: 9.03 minutes Dose: DAP 80949.10 cGycm2 1541 mGy Contrast Type and Amount: Omnipaque 175 ml Coronary Angiography The patient's coronary anatomy is right dominant. Diagnostic Cath Left Main This is a large caliber vessel, patent with no flow-limiting lesions. LAD This is a moderate size caliber vessel, traversing the anterior wall and wrapping around the apex. There is only mild disease in the mid segment, 20%. Diagonal 1 This is a patent vessel, with no flow-limiting lesions. Circumflex There is mild disease in the proximal segment, 30%. OM1 There is a stent in the proximal segment, patent with minimal restenosis. At the terminal end of this vessel, there is severe diffuse disease. Recommend medical therapy. Right Coronary This is a dominant vessel with mild diffuse disease in the proximal segment, 20%. There is a severe occlusion in the mid/distal segment, 80%. R PDA This is a small-caliber vessel, with moderate diffuse disease in the distal segment. RPLV This is a moderate size caliber vessel with overlapping stents in the proximal/mid segments, patent with minimal restenosis. The distal segment tapers down to a small size caliber, has a severe occlusion. Recommend medical therapy. Left Ventriculography The left ventricle is normal in size with normal contractility. The left ventricular ejection fraction is estimated to be >55%. There is mild hypokinesis of mid inferior wall. Hemodynamics The aortic pressure is 130/85 mmHg with a mean of 103 mmHg. The left ventricular pressure is 149/27 mmHg with a mean of mmHg. The left ventricular end diastolic pressure is 38 mmHg. PCI Technique Lesion Anticoagulation was achieved with Heparin. Percutaneous coronary intervention was performed on the mid/distal coronary artery. The lesion stenosis prior to intervention was 80% with MARCELINO 3 flow. A [facility] [address] [place] [address] INVASIVE PROCEDURE REPORT Name: DONTRELLJOHN FORDE Room #: 207-P [facility] M.R.#: [id number] ������������� Admission: 01/24/19 ������������� Attend Phys: Krish Solitario MD Discharge: ��� ������������� ��� Date of : 64 Date of Service: 01/24/19 1247 �� Report #: [id number] �������� ��������������������������������������������[id number] VISTA 6FR AR 1 #253350 Guide Catheter was used to engage the ostium. A Luge Wire .014 x 182CM #[id number] Interventional Guidewire was used to cross the lesion. BALLOON DILATION A Balloon catheter Euphora RX 2.5 x 12 #[id number] was inserted and inflated up to 8.00atm for 15seconds. Additional Inflation: 8.00atm for 24seconds. STENT DEPLOYMENT A drug-eluting stent RESOLUTE ASHLEY RX 2.75 X15 #[id number] was inserted and inflated up to 12.00atm for 21seconds. POST STENT DEPLOYMENT BALLOON DILATION A Balloon catheter Euphora NC RX 2.75 x 12 #[id number] was inserted and inflated up to 18.00atm for 20seconds. Additional Inflation: 18.00atm for 21seconds. Final angiography reveals 0 % stenosis with MARCELINO 3 flow. Conclusion 1. Successful insertion of a drug-eluting stent into the mid/distal RCA. 2. Patent stent in OM1 with minimal restenosis. 3. Patent stent in the proximal/mid segment of RPL vessel with minimal restenosis. 4. Severe diffuse disease in the distal segments of small caliber vessels including OM 1 and RPL. Recommend medical therapy. 5. Normal LV systolic function, with mild hypokinesis of the mid inferior wall. 6. Recommend dual antiplatelet therapy and aggressive risk factor management. ��������������������������������������������� <ELECTRONICALLY SIGNED> ���������������������������������������� By: Krish Solitario MD ��������������������������������������������� 01/24/19 1247 1247 124 Krish Solitario MD /INF
--- NOTE | 2019-01-24 14:11 | EKG ---
[address] [address] ELECTROCARDIOGRAM REPORT Name: JOHN JON Room #: 207-P [facility]#: [id number] ������������������ Admission: 01/24/19 ������������������ Attend Phys: Krish Solitario MD Discharge: ������������������ Date of : 64 Report #: [id number] ����������������������������������������������������������������� [id number] THIS REPORT FOR: //name// [facility] Test Date: 2019-01-24 Test Time: 09:54:32 Pat Name: JOHN JON Department: Room: Gender: F Laundry Bag Punch Operator: Tico SILVA : 1960 Requested By: Krish Solitario Order Number: [id number] MD: Lucho Hansen Measurements Intervals [place] Rate: 83 P: 69 ND: 185 QRS: 59 QRSD: 86 T: 42 QT: 395 QTc: 465 Interpretive Statements Sinus rhythm Borderline T wave abnormalities Compared to ECG 01/24/2019 07:19:01 T-wave abnormality now present ST (T wave) deviation no longer present Electronically Signed On 01-24-2019 14:10:59 CDT by Lucho Hansen [email or web address] ��������������������������������������������� <ELECTRONICALLY SIGNED> ���������������������������������������� By: Lucho Hansen MD ��������������������������������������������� 01/24/19 1412 0954 0954 Lucho Hansen MD /EMMETT
[2019-01-24 16:00] VITALS: BP 152/70
--- NOTE | 2019-01-24 16:54 | NUR ---
VSS NSR R GROIN CATH SITE WITHOUT HEMATOMA BRUIT. UP TO BRP WITHOUT C/O CHEST PAIN. VOIDING /DRINKING QS. SEE DATA FLOW SHEET FOR GREQUENT VS AND GROIN CHECKS. LUNGS DIMINISHED, O2 SAT 3L IS 96%. WILL CONTINUE TO MONITER AND CARE FOR PT PER PLAN OF CARE
[2019-01-24 19:37] VITALS: BP 153/78
[2019-01-25 03:48] LABS: ALBUMIN 3.5 g/dL (3.4-5.0); ANION GAP 5 mmol/L (7-16); BUN 7 mg/dL (7-18); CALCIUM 8.6 mg/dL (8.5-10.1); CHLORIDE 104 mmol/L (98-107); CO2 32 mmol/L (21-32); CREATININE 0.6 mg/dL (0.6-1.0); GLUCOSE 136 mg/dL (74-106); POTASSIUM 3.9 mmol/L (3.5-5.1); SGOT 14 U/L (15-37); SGPT 32 U/L (30-65); SODIUM 141 mmol/L (136-145); TOTAL BILIRUBIN 0.4 mg/dL (<0.1-1.0); TROPONIN-I <0.06 ng/mL (<0.06)
[2019-01-25 04:11] LABS: HEMATOCRIT 37.5 % (37.0-47.0); HEMOGLOBIN 12.2 gm/dL (12.0-15.0); MCHC 32.5 g/dL (28.0-37.0); MCV 110.6 fL (80.0-100.0); RBC 3.39 mil/uL (4.20-5.00); WBC 9.6 thou/uL (4.0-11.0)
--- NOTE | 2019-01-25 04:34 | NUR ---
PATIENT WAS OUT PATIENT CARDIAC CATH. ACCESSED THROUGH RIGHT GROIN. DRESSING C/D/I. C/O SORENESS AT SITE BUT NO SIGN OF HEMATOMA. SHE ALSO REPORTED PAIN OF 9 IN HER BACK . SHE STATES TO TAKE 2 NORCOS (10-325) AT HOME. TALKED TO DR PICHARDO AND OBTAIN AN ORDER FOR 2 ( 10-325). PATIENT REPORTS FEELING A SILLY COMFORTABLE. STILL SOA WITH ACTIVITIES, BUT STEADLY AMBULATES TO BATHROOM,. NORCO GIVEN X2. SEE EMAR FOR TIUMES, WILL CONTINUE TO FOLLOE POC
[2019-01-25 05:55] VITALS: BP 155/74
[2019-01-25 08:00] VITALS: BP 151/81
--- NOTE | 2019-01-25 08:14 | EKG ---
[address] [address] ELECTROCARDIOGRAM REPORT Name: JOHN JON Room #: 207-[facility].#: [id number] ������������������ Admission: 01/24/19 ������������������ Attend Phys: Krish Solitario MD Discharge: ������������������ Date of : 64 Report #: [id number] ����������������������������������������������������������������� [id number] THIS REPORT FOR: //name// [facility] Test Date: 2019-01-25 Test Time: 07:06:45 Pat Name: JOHN JON Department: Room: 207 Gender: F Dump Grader: DORA : 1960 Requested By: Krish Solitario Order Number: [id number] MD: Lucho Hansen Measurements Intervals [place] Rate: 73 P: 58 AL: 184 QRS: 44 QRSD: 102 T: 45 QT: 420 QTc: 463 Interpretive Statements Sinus rhythm Borderline T wave abnormalities Compared to ECG 01/24/2019 09:54:32 No significant changes Electronically Signed On 01-25-2019 8:14:40 CDT by Lucho Hansen [email or web address] ��������������������������������������������� <ELECTRONICALLY SIGNED> ���������������������������������������� By: Lucho Hansen MD ��������������������������������������������� 01/25/19 0814 D: 04/705 5 Lucho Hansen MD /EMMETT
[2019-01-25 09:25] VITALS: BP 152/81
[2019-01-25] MEDS ORDERED: CLOPIDOGREL75 MG PO (09:35)
[2019-01-25 10:02] VITALS: BP 152/81
--- NOTE | 2019-01-25 10:47 | NUR ---
PATIENT GIVEN DISCHARGE INSTRUCTIONS. EDUCATED PATIENT ON NEW MEDICATION AND TO MAKE FOLLOW UP APPOINTMENT. PATIENT STATED UNDERSTANDING AND ESCORTED OUT BY WHEELCHAIR ACCOMPANIED BY .
== END 2019-01-25 10:59 | disposition home or self-care (01) ==
LOC: 2N 06:46 → CATH 06:46 → 2N 10:44 → ENTRNSPT 01-25 10:24 → EDTRNSPTSTS 01-25 10:44 → CATH 01-25 10:59
PROVIDERS: Internal Medicine Cardiovascular Disease
DX: I25.110 Atherosclerotic heart disease of native coronary artery with unstable angina pectoris (principal); E78.00 Pure hypercholesterolemia, unspecified; I10 Essential (primary) hypertension; E11.9 Type 2 diabetes mellitus without complications; Z87.891 Personal history of nicotine dependence; Z79.899 Other long term (current) drug therapy; Z98.890 Other specified postprocedural states; R56.9 Unspecified convulsions; K21.9 Gastro-esophageal reflux disease without esophagitis; K58.9 Irritable bowel syndrome, unspecified; M19.90 Unspecified osteoarthritis, unspecified site; G47.30 Sleep apnea, unspecified; Z90.710 Acquired absence of both cervix and uterus; E66.9 Obesity, unspecified; J43.9 Emphysema, unspecified
CPT/HCPCS: 10081

== ENCOUNTER → 2019-08-05 | Outpatient (CLI) | payer OTHER ==
[~2019-08-05] MED LIST changes: +CARVEDILOL12.5 MG PO; +CLOPIDOGREL75 MG PO; +LIORESAL 10 MG10 MG PO; +MAXZIDE-25 MG1 EACH PO; +POTASSIUM20 PO
== END ==
LOC: RAD 10:45
DX: J98.4 Other disorders of lung (principal)

== ENCOUNTER → 2019-12-09 | Outpatient (CLI) | payer OTHER | LOC: CAT 11-09 13:21 | DX: R91.1 Solitary pulmonary nodule (principal); D86.9 Sarcoidosis, unspecified; I70.0 Atherosclerosis of aorta; I25.10 Atherosclerotic heart disease of native coronary artery without angina pectoris; M25.78 Osteophyte, vertebrae; Z88.2 Allergy status to sulfonamides; Z88.8 Allergy status to other drugs, medicaments and biological substances ==

== ENCOUNTER → 2019-12-21 | Outpatient (CLI) | payer OTHER | LOC: SJCVCIMAG 09:53 | DX: I08.1 Rheumatic disorders of both mitral and tricuspid valves (principal); I11.9 Hypertensive heart disease without heart failure; I25.708 Atherosclerosis of coronary artery bypass graft(s), unspecified, with other forms of angina pectoris; J44.9 Chronic obstructive pulmonary disease, unspecified; E78.00 Pure hypercholesterolemia, unspecified; K21.9 Gastro-esophageal reflux disease without esophagitis; E78.5 Hyperlipidemia, unspecified; M19.90 Unspecified osteoarthritis, unspecified site; F17.210 Nicotine dependence, cigarettes, uncomplicated; Z79.82 Long term (current) use of aspirin; Z79.899 Other long term (current) drug therapy; Z95.1 Presence of aortocoronary bypass graft ==

== ENCOUNTER → 2019-12-23 | Outpatient (CLI) | payer OTHER ==
[~2019-12-23] VITALS: Ht 167.6 cm; Wt 98.0 kg
[2019-12-23 07:22] VITALS: BP 111/69
[2019-12-23 07:53] LABS: HEMATOCRIT 40.2 % (37.0-47.0); HEMOGLOBIN 13.2 gm/dL (12.0-15.0); MCH 35.1 pg (26.0-34.0); MCV 106.6 fL (80.0-100.0); RBC 3.77 mil/uL (4.20-5.00); RDW 14.5 % (10.5-14.5); WBC 8.4 thou/uL (4.0-11.0)
[2019-12-23 08:04] LABS: CALCIUM 9.1 mg/dL (8.5-10.1); CREATININE 0.7 mg/dL (0.6-1.0); POTASSIUM 3.6 mmol/L (3.5-5.1)
--- NOTE | 2019-12-23 09:30 | EKG ---
[facility] [place] [address] ELECTROCARDIOGRAM REPORT Name: JOHN JON Room #: REG [facility].#: [id number] Admission: 12/23/19 Attend Phys: Krish Solitario MD Discharge: Date of : 64 Report #: [id number] THIS REPORT FOR: cc: Red Manning MD, Kirk D. MD Lundgren,Anthony Woodard MD [facility] ~ THIS REPORT FOR: //name// [facility] Test Date: 2019-12-23 Test Time: 07:31:15 Pat Name: JOHN JON Department: Room: Gender: Shotweld Operator: Tico SILVA : 1960 Requested By: Krish Solitario Order Number: [id number] MD: Anthony Groves Measurements Intervals [place] Rate: 84 P: 61 ND: 177 QRS: 38 QRSD: 82 T: 65 QT: 397 QTc: 470 Interpretive Statements Sinus rhythm Nonspecific ST segment abnormality Compared to ECG 01/25/2019 07:06:45 No significant change was found Electronically Signed On 12-23-2019 9:29:28 CDT by Anthony Groves [email or web address] <ELECTRONICALLY SIGNED> By: Anthony Groves MD, FACC 12/23/19 0929 0 Anthony Groves MD, [facility] /EPI
--- NOTE | 2019-12-23 12:25 | CATHLAB ---
[facility] [place] [address] INVASIVE PROCEDURE REPORT Name: JOHN JON [id number] Admission: 12/23/19 Attend Phys: Krish Solitario MD Discharge: Date of : 64 Report #: [id number] THIS REPORT FOR: cc: Red Manning MD, Kirk D. MD Park, Jin S. MD ~ APPROVED REPORT Study performed: 12/23/2019 07:37:27 Patient Details Patient Status: Out-Patient Room #: The patient is a 59 year-old female Event Personnel Krish Solitario Chain Mender, Gabriella De RN RN, Andrew Trinidad RTR Monitor, Maico Hughes Monitor, Lawson Arias RTR Scrub Procedures Performed Left Heart Cath w/or w/o Coronaries [id number] [facility] Art Access - R femoral artery* 34500 Initial Mod Sed Same Phys/QHP Gr5y 239781 62661 Mod Sed Same Phys/QHP Ea [id number] Hemostasis with Manual pressure Indication Dyspnea, Unstable angina , Chest pain Risk Factors Obesity, Chronic Lung DiseaseHypercholesterolemiaPhysical Activity, Coronary Artery DiseaseHypertension, Diabetes Tobacco History () Previous Procedures/Diagnoses Previous PCI Procedure Narrative The patient was brought electively to the Cardiac Catheterization Laboratory and was prepped and draped in a sterile manner. The Right Groin^ was infiltrated with 1% Lidocaine subcutaneous anesthesia. A PINNACLE 4FR Sheath #[id number] sheath was inserted into the RFA^. Coronary angiography was performed using coronary diagnostic catheters. The right coronary system was accessed and visualized with a JR4 catheter. The left coronary system was accessed and visualized [place] [address] [place] [address] INVASIVE PROCEDURE REPORT Name: JOHN JON Room #: REG [facility]#: [id number] Admission: 12/23/19 Attend Phys: Krish Solitario MD Discharge: Date of : 64 Report #: [id number] with a JL4 catheter. The left ventricle was accessed and visualized with a PIGTAIL catheter. Hemostasis was obtained with manual pressure following sheath removal without any complications. The patient tolerated the procedure well and there were no complications associated with the procedure. There was no hematoma. Intraoperative Conscious Sedation Sedation start time: 08:31 Case end Time: 09:07 Fentanyl 50 mcg Versed 1 mg Fluoro Time: 3.80 minutes Dose: DAP 4682.00 cGycm2 1120 mGy Contrast Type and Amount: Omnipaque 95 ml Coronary Angiography The patient's coronary anatomy is right dominant. Diagnostic Cath Left Main The left main artery is a large-caliber vessel, patent with no flow-limiting lesions. LAD The LAD is a moderate size caliber vessel, traversing the anterior wall and wrapping around the apex. There is mild plaquing in the mid segment. Diagonal 1 This is a small to moderate size caliber vessel, patent with no flow-limiting lesions. Diagonal 2 This is a small to moderate size caliber vessel, patent with no flow-limiting lesions. Circumflex There is mild disease in the proximal segment, 30%. OM1 There is a patent stent in the proximal segment, with minimal restenosis. The distal segment tapers down to a small size caliber vessel, with severe diffuse disease. Unchanged compared to prior procedures. Continue with medical therapy. Right Coronary The RCA is a dominant vessel, with mild disease in the mid segment, 30%. There is a patent stent in the distal segment with minimal restenosis. R PDA This is a small-caliber vessel, with moderate diffuse disease in the distal segment. RPLV There are multiple overlapping stents in the proximal and mid segment, patent with minimal restenosis. There is severe diffuse disease in the distal segment, unchanged compared to prior procedures. Left Ventriculography The left ventricle is normal in size with normal contractility. [facility] [address] [place] [address] INVASIVE PROCEDURE REPORT Name: JOHN JON Room #: REG [facility].#: [id number] Admission: 12/23/19 Attend Phys: Krish Solitario MD Discharge: Date of : 64 Report #: [id number] left ventricular ejection fraction is estimated to be 60-65%. Hemodynamics The aortic pressure is 158/81 mmHg with a mean of 102 mmHg. The left ventricular pressure is 163/11 mmHg with a mean of mmHg. The left ventricular end diastolic pressure is 24 mmHg. Conclusion 1. There are patent stents in OM1, distal RCA and RPL branch. 2. There is severe diffuse disease in the terminal segment of OM1 and RPL. This is unchanged compared to prior procedures. 3. There is normal LV systolic function. 4. Recommend aggressive risk factor management. <ELECTRONICALLY SIGNED> By: Krish Solitario MD 12/23/19 1224 1224 1224 Krish Solitario MD /INF
== END | disposition home or self-care (01) ==
LOC: CATH 06:31
PROVIDERS: Internal Medicine Cardiovascular Disease
DX: R06.00 Dyspnea, unspecified (principal); I25.110 Atherosclerotic heart disease of native coronary artery with unstable angina pectoris; R07.9 Chest pain, unspecified; I10 Essential (primary) hypertension; E11.9 Type 2 diabetes mellitus without complications; J44.9 Chronic obstructive pulmonary disease, unspecified; M79.7 Fibromyalgia; G47.33 Obstructive sleep apnea (adult) (pediatric); E78.00 Pure hypercholesterolemia, unspecified; E66.09 Other obesity due to excess calories; K21.9 Gastro-esophageal reflux disease without esophagitis; D64.9 Anemia, unspecified; F17.210 Nicotine dependence, cigarettes, uncomplicated; Z98.890 Other specified postprocedural states; Z90.710 Acquired absence of both cervix and uterus; Z90.49 Acquired absence of other specified parts of digestive tract; Z79.4 Long term (current) use of insulin; Z86.73 Personal history of transient ischemic attack (TIA), and cerebral infarction without residual deficits; Z79.899 Other long term (current) drug therapy; Z88.8 Allergy status to other drugs, medicaments and biological substances; Z88.2 Allergy status to sulfonamides; Z91.040 Latex allergy status; Z79.82 Long term (current) use of aspirin

== ENCOUNTER → 2020-06-15 | Outpatient (CLI) | payer OTHER | LOC: CAT 10:18 | PROVIDERS: ATTEND Pediatrics | DX: I25.10 Atherosclerotic heart disease of native coronary artery without angina pectoris (principal); R91.1 Solitary pulmonary nodule; R06.02 Shortness of breath ==

== ENCOUNTER → 2020-11-14 | Outpatient (CLI) | payer OTHER | LOC: SJCVC 13:48 | PROVIDERS: ATTEND Internal Medicine Cardiovascular Disease | DX: R94.31 Abnormal electrocardiogram [ECG] [EKG] (principal); I25.118 Atherosclerotic heart disease of native coronary artery with other forms of angina pectoris; J44.9 Chronic obstructive pulmonary disease, unspecified; I10 Essential (primary) hypertension; E78.00 Pure hypercholesterolemia, unspecified; E11.9 Type 2 diabetes mellitus without complications; G47.33 Obstructive sleep apnea (adult) (pediatric); M19.90 Unspecified osteoarthritis, unspecified site; G89.29 Other chronic pain; K21.9 Gastro-esophageal reflux disease without esophagitis; E78.5 Hyperlipidemia, unspecified; F17.210 Nicotine dependence, cigarettes, uncomplicated; Z98.61 Coronary angioplasty status; Z95.828 Presence of other vascular implants and grafts; Z90.710 Acquired absence of both cervix and uterus; Z98.890 Other specified postprocedural states; Z96.611 Presence of right artificial shoulder joint; Z88.8 Allergy status to other drugs, medicaments and biological substances; Z79.4 Long term (current) use of insulin; Z79.82 Long term (current) use of aspirin; Z79.899 Other long term (current) drug therapy; Z79.891 Long term (current) use of opiate analgesic; Z82.49 Family history of ischemic heart disease and other diseases of the circulatory system ==

== ENCOUNTER → 2020-12-13 | Outpatient (CLI) | payer OTHER | LOC: CAT 13:32 | PROVIDERS: ATTEND Pediatrics | DX: R91.8 Other nonspecific abnormal finding of lung field (principal); I25.10 Atherosclerotic heart disease of native coronary artery without angina pectoris ==

== ENCOUNTER → 2021-07-01 | Outpatient (CLI) | payer OTHER | LOC: SJCVCIMAG 08:54 | PROVIDERS: ATTEND Internal Medicine Cardiovascular Disease | DX: I25.10 Atherosclerotic heart disease of native coronary artery without angina pectoris (principal); J44.9 Chronic obstructive pulmonary disease, unspecified; I10 Essential (primary) hypertension; E78.00 Pure hypercholesterolemia, unspecified; E78.5 Hyperlipidemia, unspecified; E11.9 Type 2 diabetes mellitus without complications; F17.200 Nicotine dependence, unspecified, uncomplicated; Z79.899 Other long term (current) drug therapy; Z79.82 Long term (current) use of aspirin; Z79.4 Long term (current) use of insulin; Z98.61 Coronary angioplasty status; Z91.040 Latex allergy status; Z88.1 Allergy status to other antibiotic agents; Z88.2 Allergy status to sulfonamides; Z88.8 Allergy status to other drugs, medicaments and biological substances ==

== ENCOUNTER → 2021-07-09 | Outpatient (CLI) | payer OTHER | LOC: CAT | PROVIDERS: ATTEND Pediatrics | DX: R91.1 Solitary pulmonary nodule (principal); J98.4 Other disorders of lung; J44.9 Chronic obstructive pulmonary disease, unspecified; I25.10 Atherosclerotic heart disease of native coronary artery without angina pectoris ==

== ENCOUNTER → 2021-10-24 | Outpatient (CLI) | payer OTHER ==
--- NOTE | 2021-11-09 11:50 | PFR/MVV ---
[facility] [place] [address] PULMONARY FUNCTION MVV/REPORT Name: JOHN JON Room #: REG [facility] Arabella.#: [id number] Admission: 10/24/21 Attend Phys: Barney Garcia MD Discharge: Date of : 64 Report #: [id number] THIS REPORT FOR: //name// >> SPIROMETRY: (BTPS) Height: 66 in cm Weight: 214 lbs kg Exam Date: 10/24/21 PRE-RX POST-RX PRED BEST %PRED BEST %PRED %CHG FVC LITERS . 3.32 . 2.36 . 71 . 2.37 . 71 . 0 FEV1 LITERS . 2.47 . 1.71 . 69 . 1.68 . 68 . -2 FEV1/FVC % . 74 . 73 . 99 . 71 . 97 . -2 TEC12-69% L/Sec . 2.74 . 1.29 . 47 . 1.11 . 41 . -14 PEF L/SEC . 6.00 . 4.04 . 67 . 3.20 . 53 . -21 FEF50/FIF50 UNITLESS . 3.54 . 2.40 . 68 . 2.00 . 57 . -17 MVV L/Min . 93 . 68 . 73 f 1/Min . . . >> LUNG VOLUMES: (BTPS) PRE-RX POST-RX PRED AVG %PRED AVG %PRED %CHG VC Liters . 3.32 . 2.36 . 71 . . . TLC Liters . 5.30 . 3.75 . 71 . . . RV Liters . 2.00 . 1.39 . 70 . . . RV/TLC % . 37 . 37 . 99 . . . FRC PL Liters . 2.52 . 1.61 . 64 . . . FRC N2 Liters . 2.52 . . . . . ERV Liters . 1.12 . 0.12 . 11 . . . IC Liters . 2.23 . 2.14 . 96 . . . >> DIFFUSION: DLCO ml/Min/mmHg . 25.6 . 12.0. . 47 . . . DL Kanchan ml/Min/mmHg . 25.6 . 12.0 . 47 . . . DLCO/VA ml/Min/mmHg . 3.80 . 3.95 . 104 . . . VA Liters . . 3.03 . . . . COMMENTS: COMMENTS: >> RESISTANCE: [facility] [address] [place] [address] PULMONARY FUNCTION MVV/REPORT Name: JOHN JON Room #: REG [facility] Ayan#: [id number] Admission: 10/24/21 Attend Phys: Barney Garcia MD Discharge: Date of : 64 Report #: [id number] PRE-RX PRED AVG %PRED Raw Total cmH20/L/Sec . . 5.68 . Raw Insp cmH20/L/Sec . . 4.83 . Raw Exp cmH20/L/Sec . . 7.15 . Raw cmH20/L/Sec . 1.53 . 4.14 . 270 Gaw L/Sec/cmH20 . 0.605 . 0.242 . 40 sRaw cmH20 Sec . 3.86 . 12.03 . 311 sGaw l/cmH20 Sec . 0.259 . 0.083 . 32 Vtq Liters . . 2.91 . # = OUTSIDE 95% CONFIDENCE INTERVAL CALIBRATION: PRED: 3.00 ACTUAL: EXP 3.01 INSP 3.02 [facility]-10-06 [facility]05 N-1804-4 >> INTERPRETATION/IMPRESSION: DATE OF SERVICE: 10/24/2021 PULMONARY FUNCTION STUDIES SPIROMETRY: FEV1 is 1.71 liters (69% predicted), FVC is 2.36 liters (71% predicted), FEV1/FVC ratio is 73%. There is no significant response to bronchodilator therapy. LUNG VOLUMES: Total lung capacity is reduced, 3.75 liters (71% predicted). IC to ERV ratio is increased 2.14 liters to 0.12 liters. Diffusing capacity is severely decreased. IMPRESSION: Pulmonary function studies are consistent with a moderate restrictive airflow defect with no significant response to bronchodilator therapy. Diffusing capacity is severely decreased. <ELECTRONICALLY SIGNED> By: Barney Garcia MD 11/09/21 1150 Barney Garica MD /nt
== END ==
LOC: PUL 10:13
PROVIDERS: ATTEND Pediatrics
DX: J44.9 Chronic obstructive pulmonary disease, unspecified (principal); Z20.822 Contact with and (suspected) exposure to COVID-19